=== PATIENT | female | born 1950 | race African-American/Black ===

== ENCOUNTER 2017-04-09 09:49 | Emergency (ER) | payer OTHER ==
[~2017-04-09] VITALS: Ht 165.1 cm; Wt 92.0 kg
[~2017-04-09 09:49] MED LIST: 1-ME1LIQ OR; ALBU6.7H INH; ASPI81 PO; ENAL20TA81; GLUCTAB; HYDR-2768; LEXA10TA; LIPI20TA OR; ULTR50TA PO; ZITH250T PO; ZOLP10TA3 PO
[2017-04-09 09:56] VITALS: BP 134/69; PULSE 65; RESP 16; TEMP 98.3; O2SAT 98
[2017-04-09] MEDS ORDERED: VENTAER INH (10:31)
[2017-04-09] MEDS ORDERED: ZOFR4TAB PO (10:31)
--- NOTE | 2017-04-09 10:32 | PD ---
HPI Chief Complaint: Cold / Flu Symptoms Time Seen by Provider: 10:05 Travel History International Travel<30 days: No Contact w/Intl Traveler<30days: No Traveled to known affect area: No History of Present Illness HPI 66-year-old female here for nausea and upset stomach. She reports she was diagnosed with influenza on 04/07/17. She was put on Tamiflu at that time which has caused her to become nauseous each time she takes it. She denies abdominal pain. Flulike symptoms started proximately 1 week ago. She reports flulike symptoms have improved with the exception of short episodes of wheezing at night with coughing. He denies fever, chills, shortness of breath, abdominal pain. Symptom severity is moderate. Aggravated by taking the Tamiflu and no alleviating factors. PFSH Past Medical History Hx Anticoagulant Therapy: Yes (BABY ASA DAILY) Anxiety: Yes Cancer: No Cardiovascular Problems: Yes (HTN, CHOL) High Cholesterol: Yes Diabetes: Yes Patient Takes Glucophage: Yes Diminished Hearing: No Glaucoma: No Hepatitis: No Hiatal Hernia: No Hypertension: Yes Respiratory: No Thyroid Disease: No Tetanus Vaccination: Unknown ?: Not Past Surgical History Gynecologic Surgery: Yes (HYSTERECTOMY) Hysterectomy: Yes Pacemaker: No Other Surgery: Yes Social History Alcohol Use: No Tobacco Use: No Substance Use: No Allergies-Medications (Allergen,Severity, Reaction): Coded Allergies: codeine (Verified Allergy, Severe, 04/09/17) penicillin G (Unverified Allergy, Intermediate, 04/09/17) Reported Meds & Prescriptions Reported Meds & Active Scripts Active Zithromax Z-Flaquito (Azithromycin) 250 Mg Tab 250 Mg PO DIRECTED 5 Days 500 MG (2 TABLETS) PO ON DAY 1, THEN 250 MG (1 TABLET) PO ON DAYS 2 TO 5. Proventil Hfa (Albuterol Sulfate) 6.7 Gm Aero 1-2 Puff INH Q6 PRN Reported Ultram (Tramadol HCl) 50 Mg Tab 50 Mg PO Q4H PRN Amlodipine Besylate 10 Mg Tab 10 Mg OR DAILY Lipitor (Atorvastatin Calcium) 20 Mg Tab 20 Mg OR BID Ambien 10 Mg Tab (Zolpidem Tartrate) 10 Mg Tab 10 Mg PO HSPRN Aspirin 81 Mg Tab 81 Mg PO DAILY Lexapro (Escitalopram Oxalate) 10 Mg Tab DAILY Hctz (Hydrochlorothiazide) 25 Mg Tab DAILY Vasotec (Enalapril Maleate) 20 Mg Tab BID Glucophage (Metformin HCl) 500 Mg Tab 1,000 BID Review of Systems Except as stated in HPI: all other systems reviewed are Neg General / Constitutional: No: Fever HENT: No: Headaches Cardiovascular: No: Chest Pain or Discomfort Respiratory: No: Shortness of Breath Gastrointestinal: Positive: Nausea Physical Exam Narrative GENERAL: Alert, nontoxic appearing 66-year-old female SKIN: Warm and dry. No rash HEAD: Normocephalic. EYES: No scleral icterus. No injection or drainage. NECK: Supple, trachea midline. No JVD or lymphadenopathy. No meningismus. CARDIOVASCULAR: Regular rate and rhythm RESPIRATORY: Breath sounds equal bilaterally. No accessory muscle use. No wheezing GASTROINTESTINAL: Abdomen soft, non-tender, no rebound, nondistended. MUSCULOSKELETAL: No cyanosis, or edema. BACK: Nontender without obvious deformity. No CVA tenderness. Data Data Last Documented VS Vital Signs Date Time Temp Pulse Resp B/P (MAP) Pulse Ox O2 Delivery O2 Flow Rate FiO2 04/09/17 09:56 98.3 65 16 134/69 (90) 98 MDM Medical Decision Making Medical Screen Exam Complete: Yes Emergency Medical Condition: Yes Differential Diagnosis Side effect of medication, influenza, other Narrative Course 66-year-old female who is well-appearing presents with nausea secondary to her Tamiflu. Her vital signs are stable. She is nontoxic appearing. Her lung sounds are clear. She reports improvement of her flulike symptoms. She will be given a few days supply of Zofran as needed for nausea. Option of stopping the Tamiflu was also discussed given the patient's improvement of symptoms and onset of flu 1 week prior Diagnosis Primary Impression: Medication side effect Qualified Codes: T88.7XXA - Unspecified adverse effect of drug or medicament, initial encounter Referrals: Primary Care Physician Additional Instructions: Stable hydrated by drinking plenty fluids. Take the Zofran for nausea as needed. Use albuterol inhaler as needed for wheezing. As we discussed stopping the Tamiflu at this point is an option. Scripts Albuterol 18 GM Inh (Ventolin Hfa 18 GM Inh) 90 Mcg/Act Aer 2 PUFF INH Q4-6H Y for SHORTNESS OF BREATH, #1 INHALER 0 Refills Prov: Triny Lamb 04/09/17 Ondansetron (Zofran) 4 Mg Tab 4 MG PO Q8HR Y for NAUSEA OR VOMITING, #12 TAB 0 Refills Prov: Triny Lamb 04/09/17 Disposition: 01 DISCHARGE HOME Condition: Stable Triny Lamb Apr 09, 2017 10:32
== END 2017-04-09 11:04 | disposition home or self-care (01) ==
LOC: PHED 09:49
DX: T37.5X5A Adverse effect of antiviral drugs, initial encounter (principal); R11.0 Nausea; F41.9 Anxiety disorder, unspecified; I10 Essential (primary) hypertension; E78.00 Pure hypercholesterolemia, unspecified; E11.9 Type 2 diabetes mellitus without complications; Z79.82 Long term (current) use of aspirin; Z79.899 Other long term (current) drug therapy; Z88.5 Allergy status to narcotic agent
CPT/HCPCS: 99284